=== PATIENT | female | born 1960 | race Caucasian/White ===

== ENCOUNTER 2020-09-16 02:47 | Outpatient (CLI) | payer BC, SELFPAY ==
--- NOTE | 2020-09-16 | DI.CT_ITS ---
EXAM: CT SINUS WO CLINICAL HISTORY: NASAL POLYPS,J33.9 TECHNIQUE: COMPARISON: No exams were available for comparison FINDINGS: CT examination of the paranasal sinuses was performed according to the usual protocol. The mastoid a ir cells are clear. Temporal bone structures appear intact. Orbital structures appear intact. Visualized paranasal sinuses are clear except for minimal mucoperiosteal thickening of right maxillar y antrum.. The ostiomeatal complexes of the maxillary antra appear intact bilaterally. There rounded radiodensities the midportion of the nasal cavity, question nasal polyposis please lexii elate clinically. IMPRESSION: No evidence of sinusitis. Probable nasal polyposis. RADIATION DOSE DELIVERED: 113.17mGy.cm Total DLP
== END 2020-09-16 03:07 ==
PROVIDERS: PCP Nurse Practitioner Adult Health; Visit Provider Otolaryngology
DX: J33.9 Nasal polyp, unspecified (principal)
CPT/HCPCS: 70486

== ENCOUNTER 2020-10-14 00:33 | Outpatient (CLI) | payer BC, SELFPAY ==
--- NOTE | 2020-10-14 08:15 | DI.MAMMO_ITS ---
EXAM: MAMMO SCREENING CLINICAL HISTORY: screening,Z12.39 TECHNIQUE: Mammograms were interpreted according to the usual protocol including computer analysis w [email or web address] CAD system, tomosynthesis and C-view imaging. COMPARISON: FINDINGS: The breasts are of moderate density with fairly symmetrical distribution of fibroglandular tissue. N o dominant mass or clumped microcalcification is identified in either breast. The current examinatio n is compared with previous examinations including February 2016 and there has been no gross interval ch madeleine in appearance in comparison with the prior studies. IMPRESSION: No specific evidence of malignancy at this time. Routine screening examinations are suggested at yea rly intervals in this age group according to the ACS ACR guidelines. BI-RADS Category 1 - Negative Breast Density - Category B - Scattered areas of fibroglandular density
== END 2020-10-14 00:53 ==
PROVIDERS: PCP Nurse Practitioner Adult Health; Visit Provider Nurse Practitioner Adult Health
DX: Z12.31 Encounter for screening mammogram for malignant neoplasm of breast (principal)
CPT/HCPCS: 77063; 77067

== ENCOUNTER 2020-10-14 02:29 | Outpatient (CLI) | payer BC, SELFPAY ==
[2020-10-14 18:41] LABS: ALT 26 U/L (14-59); AST 18 U/L (15-37); Albumin 4.6 g/dL (3.4-5.0); Alkaline Phosphatase 56 U/L (46-116); Anion Gap 6.1 mmol/L (3-11); BUN 8 mg/dL (7-18); Bilirubin, Total 0.5 mg/dL (0.2-1.0); CO2 30.9 mmol/L (21.0-32.0); CREATININE 1.03 mg/dL (0.55-1.02); Calcium 9.3 mg/dL (8.5-10.1); Calculated LDL 120 mg/dL (<100); Chloride 104 mmol/L (98-107); Cholesterol 190 mg/dL (<200); Estimated GFR 54.48 (mL/min/1.73m2); Glucose 94 mg/dL (74-106); HDL Cholesterol 56 mg/dL (40-60); Potassium 3.8 mmol/L (3.5-5.1); Sodium 141 mmol/L (136-145); Total Protein 7.5 g/dL (6.4-8.2); Triglyceride 71 mg/dL (<150)
[2020-10-16 09:32] LABS: Hepatitis C Ab w Rflx HCV PCR Negative (Negative)
[2020-10-16 09:34] LABS: HIV-1/2 Ag & Ab Screen Negative (Negative)
== END 2020-10-14 02:49 ==
PROVIDERS: PCP Nurse Practitioner Adult Health; Visit Provider Nurse Practitioner Adult Health
DX: Z13.220 Encounter for screening for lipoid disorders (principal); Z13.1 Encounter for screening for diabetes mellitus; Z11.4 Encounter for screening for human immunodeficiency virus [HIV]; Z11.59 Encounter for screening for other viral diseases; Z51.81 Encounter for therapeutic drug level monitoring
CPT/HCPCS: 36415; 80053; 80061; 86803; 87389

== ENCOUNTER 2020-10-26 02:20 | Outpatient (CLI) | payer BC, SELFPAY ==
[2020-10-28 09:40] LABS: COVID-19 RT-PCR Result NEGATIVE (Negative)
== END 2020-10-26 02:40 ==
PROVIDERS: PCP Nurse Practitioner Adult Health; Visit Provider Nurse Practitioner Adult Health
DX: Z20.828 Contact with and (suspected) exposure to other viral communicable diseases (principal)
CPT/HCPCS: U0003

== ENCOUNTER 2020-11-23 10:02 | Outpatient (CLI) | payer BC, SELFPAY ==
--- NOTE | 2020-11-23 08:30 | DI.RAD_ITS ---
EXAM: XR LUMBAR SPINE AP, LAT CLINICAL HISTORY: pain. TECHNIQUE: 2D digital imaging was performed. COMPARISON: No exams were available for comparison FINDINGS: There is transitional anatomy. There appears to be partial sacralization of the L5 segment and a greta imentary right 12th rib. There is no evidence compression fracture but there is degenerative anterolisthesis of L4 upon L5 by approximately 1 centimeter and related to degenerative facet joint changes. There also degenerative changes at L5-S1 level. Disc spaces maintain normal height with the exception of Schmorl's node inva gination into the inferior endplate of L5. Also subtle suggestion of a possible pars defect at L 5 l evel, as seen on the coned-down lateral view. IMPRESSION: There is degenerative anterolisthesis of L4 upon L5. This is related to degenerative facet joint christine nges. There are no pars defects at L4 level but possible pars defect at L5 level, somewhat peculiar as this appears sacralized. Twelfth rib is rudimentary. Recommend and AP view of the thoracic spine for accurate counting given the transitional anatomy here. DATA REPOSITORY: RADIATION DOSE DELIVERED:
--- NOTE | 2020-11-23 08:30 | DI.RAD_ITS ---
EXAM: XR HIP PELVIS ADULT BL CLINICAL HISTORY: pain. TECHNIQUE: 2D digital imaging was performed. COMPARISON: CR RIGHT HIP COMPLETE from 08/24/2012 FINDINGS: There is no evidence of pelvic or hip fracture. There is no hip joint space narrowing. Sacroiliac j oints appear unremarkable. Degenerative changes in the symphysis pubis are noted. Bone density is n ormal. No osseous lesions. IMPRESSION: DATA REPOSITORY: RADIATION DOSE DELIVERED:
--- NOTE | 2020-11-23 08:45 | DI.RAD_ITS ---
EXAM: XR KNEE LT 4V AP,LAT,SARA,PAT CLINICAL HISTORY: pain. TECHNIQUE: 2D digital imaging was performed. COMPARISON: No exams were available for comparison FINDINGS: Three views of the left knee reveal no evidence of fracture nor joint space narrowing. There is no p rominent joint effusion. No osteochondral defects evident. Small benign bone island measuring 3 mil limeters is noted in the lateral femoral condyle. IMPRESSION: No significant radiographic findings. DATA REPOSITORY: RADIATION DOSE DELIVERED:
== END 2020-11-23 10:22 ==
PROVIDERS: PCP Nurse Practitioner Adult Health; Referring Provider Nurse Practitioner Adult Health; Visit Provider Physician Assistant Surgical
DX: M25.562 Pain in left knee (principal); M25.551 Pain in right hip; M25.552 Pain in left hip; M43.16 Spondylolisthesis, lumbar region
CPT/HCPCS: 73521; 72100; 73564

== ENCOUNTER 2021-02-08 02:37 | Outpatient (CLI) | payer BC, SELFPAY ==
--- NOTE | 2021-02-08 | DI.MRI_ITS ---
EXAM: MR LUMBAR SPINE WO CLINICAL HISTORY: LOW BACK PAIN, LUMBAR RADICULOPATHY,M54.5,M54.16. TECHNIQUE: Multiplanar multisequence MRI of the Lumbar spine was performed. COMPARISON: CR XR LUMBAR SPINE AP, LAT from 11/23/2020 FINDINGS: Conus medullaris is at the lower L1 level. There is no evidence of conus mass nor subjacent clumping of intrathecal nerve roots to suggest arachnoiditis. The distal thecal sac appears unremarkable.The re is no evidence of Tarlov intrasacral cysts nor other significant findings within the sacral canal Bones:There are no fractures nor ominous osseous lesions in the lumbar vertebral bodies and visualize d sacrum. With respect to the individual levels... T12-L1: Unremarkable L1-2: Normal disc height and signal. No disc herniation nor central canal stenosis.No foraminal steno sis L2-3: Normal disc height. Mild annular bulging. Tiny tear in the lateral left annulus. Mild annular bulging into the floor of the left exiting neural foramen. No true foraminal stenosis. No central canal stenosis. No facet arthropathy. L3-4: Normal disc height. Tiny focus of increased signal in the posterior annulus consistent with sm all radial tear but no prominent disc herniation. Central canal dimensions lower normal.No foraminal stenosis.No facet arthropathy. L4-5: Preserved disc height and signal. However, there is anterolisthesis of L4 upon L5 by approxima tely 5 millimeters.. This appears to be related to degenerative changes in both facet joints at this level. There is a small superimposed subligamentous disc bulge. This slightly indents the anterior aspect of the thecal sac at this level. There is mild central spinal canal stenosis. Although the lateral recesses are carried forward, there does not appear to be significant foraminal stenosis as t here is no significant disc height loss. L5-S1: Preserved disc height and signal. Tiny hyperintense focus in the posterior annulus right of c enter consistent with radial tearing but there is no significant disc herniation at this level. Ther e is no central spinal canal stenosis. No significant foraminal stenosis. There are asymmetric dege nerative changes in the right facet joint at this level. Milder degenerative changes in the left fac et joint. Soft tissues: paraspinal soft tissues appear unremarkable. IMPRESSION: 1. There is degenerative anterolisthesis of L4 upon L5, approximately 5 millimeters slippage. The tr ue amount of slippage can be determined with flexion extension lateral plain film views. There is a small central subligamentous disc bulge at this level which indents the thecal sac and with mild cent ral canal stenosis at this level. There is no obvious foraminal stenosis at this level. There is no disc height loss. 2. Mild L5-S1 findings as above, not associated with central nor foraminal stenosis. Asymmetric dege nerative change in the right facet joint at the L5-S1 level. 3. Other findings as above. DATA REPOSITORY:
== END 2021-02-08 02:57 ==
PROVIDERS: PCP Nurse Practitioner Adult Health; Visit Provider Student in an Organized Health Care Education/Training Program
DX: M43.16 Spondylolisthesis, lumbar region (principal); M47.817 Spondylosis without myelopathy or radiculopathy, lumbosacral region
CPT/HCPCS: 72148

== ENCOUNTER → 2022-08-31 00:51 | Outpatient (CLI) | payer BC, SELFPAY ==
--- NOTE | 2022-08-31 07:30 | DI.MAMMO_ITS ---
Exam(s) MAMMO SCREENING EXAM: MAMMO SCREENING CLINICAL HISTORY: screening,Z12.39 TECHNIQUE: Bilateral full field digital CC and MLO mammographic images were obtained with 3D tomosyn thesis and utilizing computer aided detection (CAD). COMPARISON: Available for comparison. FINDINGS: Masses/Architectural Distortion: None seen. Microcalcifications: No suspicious pleomorphic-type are seen. Skin Thickening/Nipple Retraction: None. IMPRESSION: 1. No significant interval change with no specific features of malignancy noted. 2. Unless there is more urgent need, screening mammography is recommended, as per [place] [employer] guidelines. BI-RADS Category 1 - Negative Breast Density - Category B - Scattered areas of fibroglandular density Breast density category C or D implies that the patient has dense breast tissue. Dense breast tissue is very common and is not abnormal but dense breast tissue can make it harder to find cancer on a ma mmogram. Also, dense breast tissue may increase their breast cancer risk. This information about the result of the mammogram report was provided to the patient to raise their awareness. Use this report when you speak with the patient about their risks for breast cancer, which includes their family hist ory. At that time, you may recommend for more screening tests (Ultrasound or MRI) as they might be us eful based on their risk. A negative radiographic report should not delay biopsy if a dominant or clinically suspicious mass is present. Up to ten percent of cancers are not identified on mammography. A negative report may reinforce clinical impression. Adenosis and dense breasts may obscure an underlying neoplasm. False positive reports average 6 to 10%. Patient will receive a letter notifying them of these results.
== END ==
PROVIDERS: PCP Nurse Practitioner Adult Health; Visit Provider Nurse Practitioner Adult Health
DX: Z12.31 Encounter for screening mammogram for malignant neoplasm of breast (principal)
CPT/HCPCS: 77063; 77067

== ENCOUNTER 2023-08-14 15:50 | Outpatient (REF) | payer BC, SELFPAY ==
--- NOTE | 2023-08-14 13:45 | PAPFT_PTH ---
PATIENT: Shasta joseph LOC: [facility] U#:[id number] AGE/SX: 62/F ROOM: RE08/14/[address]: Renetta Rodriguez APRN : 1960 BED: DIS: 08/14/2023 SPEC #: [id number] RECD: 08/14/23 17:56 STATUS: WENDY REQ #: [id number] DAVID: 08/14/23 13:[address]: Renetta Rodriguez DEPT: [facility] Cytology RECD BY: Olivia Salvador Tissues: 1 - CX/ENDOCX FOR PAP SMEARS Procedures: PAP THIN PREP/UVM Screening HPV DNA PROBE Comments: [id number]
== END 2023-08-14 15:51 | disposition home or self-care (01) ==
LOC: LBO 15:50
PROVIDERS: PCP Nurse Practitioner Adult Health; Visit Provider Nurse Practitioner Adult Health
DX: Z12.4 Encounter for screening for malignant neoplasm of cervix (principal); Z11.51 Encounter for screening for human papillomavirus (HPV)
CPT/HCPCS: 88142; 87624

== ENCOUNTER 2023-08-24 04:57 | Outpatient (CLI) | payer BC, SELFPAY ==
[2023-08-24 09:13] LABS: Abs Immature Grans 0.01 10^3/uL (0.0-0.06); Absolute Basophil Count 0.04 10^3/uL (0.0-0.2); Absolute Eosinophil Count 0.21 10^3/uL (0.0-0.7); Absolute Monocyte Count 0.46 10^3/uL (0.1-0.8); Absolute Neutrophil Count 2.44 10^3/uL (1.2-6.7); Basophils % 0.8; Eosinophils % 4.2; HCT 39.5 % (36.0-46.0); HGB 13.8 g/dL (11.2-15.7); Immature Grans % 0.2; Lymphocytes % 37.5; MCH 30.5 pg (27.0-33.0); MCHC 34.9 % (32.0-36.0); MCV 87 fL (80-95); Monocytes % 9.1; Neutrophils % 48.2; Platelet Count 279 10^3/uL (130-400); RBC 4.52 10^6/uL (3.93-5.22); RDW 11.9 % (11.7-14.6); RDW-SD 38.5 fL; WBC 5.06 10^3/uL (4.4-10.8)
[2023-08-24 09:39] LABS: ALT 25 U/L (14-59); AST 21 U/L (15-37); Albumin 4.2 g/dL (3.4-5.0); Alkaline Phosphatase 63 U/L (46-116); Anion Gap 7.9 mmol/L (3-11); BUN 13 mg/dL (7-18); Bilirubin, Total 0.7 mg/dL (0.2-1.0); CO2 28.1 mmol/L (21.0-32.0); CREATININE 1.1 mg/dL (0.55-1.02); Calcium 9.3 mg/dL (8.5-10.1); Calculated LDL 123 mg/dL (<100); Chloride 102 mmol/L (98-107); Cholesterol 188 mg/dL (<200); Estimated GFR 56.11 (mL/min/1.73m2); Glucose 120 mg/dL (74-106); HDL Cholesterol 55 mg/dL (40-60); Potassium 4.1 mmol/L (3.5-5.1); Sodium 138 mmol/L (136-145); TSH (W/Ref FT4) 1.18 uIU/mL (0.36-3.74); Total Protein 7.7 g/dL (6.4-8.2); Triglyceride 51 mg/dL (<150)
[2023-08-24 09:47] LABS: Uric Acid 4.2 mg/dL (2.6-6.0)
== END 2023-08-24 04:58 | disposition home or self-care (01) ==
LOC: LBO 04:57
PROVIDERS: PCP Nurse Practitioner Adult Health; Referring Provider Nurse Practitioner Adult Health; Visit Provider Nurse Practitioner Adult Health
DX: Z13.1 Encounter for screening for diabetes mellitus (principal); Z13.220 Encounter for screening for lipoid disorders; R42 Dizziness and giddiness; M25.562 Pain in left knee
CPT/HCPCS: 36415; 80053; 80061; 84443; 84550; 85025

== ENCOUNTER 2023-09-07 01:37 | Outpatient (CLI) | payer BC, SELFPAY ==
--- NOTE | 2023-09-07 06:45 | DI.MAMMO_ITS ---
Exam(s) MAMMO SCREENING EXAM: MAMMO SCREENING CLINICAL HISTORY: screening,Z12.39 TECHNIQUE: Bilateral full field digital CC and MLO mammographic images were obtained with 3D tomosyn thesis and utilizing computer aided detection (CAD). COMPARISON: Available for comparison. FINDINGS: Masses/Architectural Distortion: None seen. Microcalcifications: No suspicious pleomorphic-type are seen. Skin Thickening/Nipple Retraction: None. IMPRESSION: 1. No significant interval change with no specific features of malignancy noted. 2. Unless there is more urgent need, screening mammography is recommended, as per [place] [employer] guidelines. BI-RADS Category 1 - Negative Breast Density - Category B - Scattered areas of fibroglandular density Breast density category C or D implies that the patient has dense breast tissue. Dense breast tissue is very common and is not abnormal but dense breast tissue can make it harder to find cancer on a ma mmogram. Also, dense breast tissue may increase their breast cancer risk. This information about the result of the mammogram report was provided to the patient to raise their awareness. Use this report when you speak with the patient about their risks for breast cancer, which includes their family hist ory. At that time, you may recommend for more screening tests (Ultrasound or MRI) as they might be us eful based on their risk. A negative radiographic report should not delay biopsy if a dominant or clinically suspicious mass is present. Up to ten percent of cancers are not identified on mammography. A negative report may reinforce clinical impression. Adenosis and dense breasts may obscure an underlying neoplasm. False positive reports average 6 to 10%. Patient will receive a letter notifying them of these results.
== END 2023-09-07 01:57 ==
PROVIDERS: PCP Nurse Practitioner Adult Health; Visit Provider Nurse Practitioner Adult Health
DX: Z12.31 Encounter for screening mammogram for malignant neoplasm of breast (principal)
CPT/HCPCS: 77063; 77067

== ENCOUNTER 2024-09-19 01:43 | Outpatient (CLI) | payer BC, SELFPAY ==
--- NOTE | 2024-09-19 07:30 | DI.MAMMO_ITS ---
Exam(s) MAMMO SCREENING EXAM: MAMMO SCREENING CLINICAL HISTORY: screening,z12.39 TECHNIQUE: Mammograms were interpreted according to the usual protocol including computer analysis w [employer] CAD system, tomosynthesis and C-view imaging. COMPARISON: 2014 through 2022 FINDINGS: The breasts are composed of scattered fibroglandular densities, Breast Density category B. No suspicious masses or suspicious microcalcifications are seen. No skin thickening or abnormal axillary lymph nodes are seen. There has been no significant change from prior exams. IMPRESSION: BI-RADS Category 1, Negative mammogram Yearly screening mammography is recommended. Breast Density - Category B, scattered fibroglandular densities. A negative radiographic report should not delay biopsy if a dominant or clinically suspicious mass is present. Up to ten percent of cancers are not identified on mammography. A negative report may reinforce clinical impression. Adenosis and dense breasts may obscure an underlying neoplasm. False positive reports average 6 to 10%. Patient will receive a letter notifying them of these results.
--- NOTE | 2024-09-19 07:30 | DI.DEXA_ITS ---
Exam(s) XR DEXA BONE DENSITY W/WO ASAEL EXAM: XR DEXA BONE DENSITY W/WO ASAEL CLINICAL HISTORY: F/U 2018,OSTEOPENIA,SCREENING FOR OSTEOPOROSIS IN POSTMENOPAUSAL TECHNIQUE: [employer] C densitometer analysis of left hip, lumbar spine and right forearm. La teral survey image of the thoracic and lumbar spine. COMPARISON: MR MR LUMBAR SPINE WO from 02/08/2021 FINDINGS: Lateral view of the thoracic and lumbar spine shows no evidence of compression fractures. Bone mineral density measurements of the lumbar spine correspond to a total T-score of -1.5, in the osteopenic range. Bone mineral density measurements of the left hip correspond to a total T-score of 0.1 . The femoral neck T-score is -1.3, in the osteopenic range. Theright forearm bone mineral density measurements correspond to a T-score of the distal 3rd of -1.8 , in the osteopenic range. IMPRESSION: Osteopenia of the spine, hip and forearm.
--- NOTE | 2024-09-19 07:30 | DI.US_ITS ---
Exam(s) US PELVIS TRANSVAGINAL EXAM: US PELVIS TRANSVAGINAL CLINICAL HISTORY: ? ovarian mass,LLQ pain,r10.32 TECHNIQUE: Transabdominal and transvaginal imaging was performed using standard protocol. CR XR HIP PELVIS ADULT BL from 11/23/2020 FINDINGS: UTERUS: Retroflexed. 5.2 x 2.6 x 4.2 cm Endometrium: 0.6 mm Myometrium: Hypoechoic area with calcification measuring 8 millimeters, likely fibroid. Uterine bee rial calcifications. Cervix: Unremarkable. OVARIES: Right: Cyst or mass: None. Left: Cyst or mass: None. DOPPLER: Color: Symmetric and uniform flow to both ovaries. No hyperemia. CUL-DE-SAC: Free fluid: None. IMPRESSION: 1. Small fibroid near fundus. Endometrial stripe within normal limits. 2. Unremarkable bilateral ovaries. DATA REPOSITORY:
== END 2024-09-19 02:03 ==
PROVIDERS: PCP Nurse Practitioner Adult Health; Visit Provider Nurse Practitioner Adult Health
DX: R10.32 Left lower quadrant pain (principal); Z12.31 Encounter for screening mammogram for malignant neoplasm of breast; Z13.820 Encounter for screening for osteoporosis; Z78.0 Asymptomatic menopausal state
CPT/HCPCS: 77063; 77067; 77080; 76830; 76856

== ENCOUNTER 2025-04-04 01:59 | Outpatient (CLI) | payer BC, SELFPAY ==
[2025-04-04 08:47] LABS: Anion Gap 4.4 mmol/L (3-11); BUN 10 mg/dL (7-18); CO2 28.6 mmol/L (21.0-32.0); CREATININE 1.1 mg/dL (0.55-1.02); Calcium 8.8 mg/dL (8.5-10.1); Calculated LDL 99 mg/dL (<100); Chloride 104 mmol/L (98-107); Cholesterol 159 mg/dL (<200); Estimated GFR 55.42 (mL/min/1.73m2); Glucose 105 mg/dL (74-106); HDL Cholesterol 44 mg/dL (>or=50); Potassium 3.8 mmol/L (3.5-5.1); Sodium 137 mmol/L (136-145); Triglyceride 82 mg/dL (<150)
== END 2025-04-04 02:00 | disposition home or self-care (01) ==
PROVIDERS: PCP Nurse Practitioner Adult Health; Referring Provider Nurse Practitioner Adult Health; Visit Provider Nurse Practitioner Adult Health
DX: Z13.1 Encounter for screening for diabetes mellitus (principal); Z13.220 Encounter for screening for lipoid disorders
CPT/HCPCS: 36415; 80048; 80061

== ENCOUNTER 2025-07-09 10:10 | Outpatient (CLI) | payer BC, SELFPAY ==
[2025-07-09 10:23] LABS: Abs Immature Grans 0.01 10^3/uL (0.0-0.06); HCT 39.9 % (36.0-46.0); HGB 13.5 g/dL (11.2-15.7); Immature Grans % 0.1 %; MCH 29.3 pg (27.0-33.0); MCHC 33.8 % (32.0-36.0); MCV 87 fL (80-95); MPV 9.4 fL (8.0-11.0); Platelet Count 283 10^3/uL (130-400); RBC 4.60 10^6/uL (3.93-5.22); RDW 12.1 % (11.7-14.6); RDW-SD 38.3 fL; WBC 7.07 10^3/uL (4.4-10.8)
[2025-07-09 11:36] LABS: TSH (W/Ref FT4) 1.19 uIU/mL (0.36-3.74)
== END 2025-07-09 10:11 | disposition home or self-care (01) ==
LOC: LBO 10:11
PROVIDERS: PCP Nurse Practitioner Adult Health; Visit Provider Nurse Practitioner Adult Health
DX: R42 Dizziness and giddiness (principal)
CPT/HCPCS: 36415; 84443; 85025

== ENCOUNTER 2025-07-22 16:05 | Outpatient (CLI) | payer BC, SELFPAY ==
--- NOTE | 2025-07-22 07:30 | DI.US_ITS ---
APPROVED REPORT EXAM: Comprehensive 2D, Doppler, and color-flow Echocardiogram Patient Location: Out-Patient Ems Coordinator: Colby Michel RDCS (AE) Indications: Presyncope, assess valves Other Information Study Quality: Adequate Conclusion Normal left ventricular wall thickness and chamber size. Ejection fraction is 60 to 65%. Wall motion is normal Normal right ventricular size and function Both atria are normal in size There is no structural or hemodynamically significant valvular disease Normal estimated right ventricular systolic pressure 21 mmHg Mildly dilated ascending aorta 3.66 cm Wall motion Left Ventricle The left ventricle is normal size. Left ventricular systolic function is normal. The left ventricular ejection fraction is within the normal range. There is normal left ventricular wall thickness. There is normal LV segmental wall motion. There is no ventricular septal defect visualized. LVEF is 60-65%. Right Ventricle The right ventricle is normal size. The right ventricular systolic function is normal. Atria The left atrium size is normal. The right atrium size is normal. Aortic Valve The aortic valve is normal in structure. Aortic valve is trileaflet. There is no aortic valvular stenosis. No aortic regurgitation is present. Mitral Valve The mitral valve is normal in structure. No evidence of mitral valve stenosis. There is no mitral valve regurgitation noted. Tricuspid Valve The tricuspid valve is normal in structure. There is no tricuspid valve stenosis. Trace tricuspid regurgitation. The RVSP is 20.8 mmHg. Pulmonic Valve The pulmonary valve is normal in structure. There is no pulmonic valvular stenosis. There is no pulmonic valvular regurgitation. Great Vessels The aortic root is normal in size. The ascending aorta is mildly dilated. Aortic arch is normal in caliber. IVC is normal in size and collapses >50% with inspiration. Pericardium There is no pericardial effusion. 2D Dimensions IVSD d PLAX 0.61 cm F: 0.6-1.0 Ao Root d 2.49 cm F: 2.7 - 3.3 LVPW d PLAX 0.65 cm F: 0.6 - 1.0 Ao Asc Diam d 3.66 cm F: 2.3 - 3.1 LVID d PLAX 5.56 cm F: 3.8 - 5.2 LVDs 3.78 cm F: 2.2 - 3.5 LV EF Teichholz 59.6 % FS 32.06 % LV EDV (Teich) 151.1 mL LV ESV (Teich) 61.0 mL Stroke Vol Index (Teich) 50.30 M-Mode TAPSE 1.90 cm (M/F) >1.7 Auto EF LV EDV A4C 96.5 mL LV EDV A2C 88.2 mL LV EDV BP 93.3 mL LV ESV A4C 39.0 mL LV ESV A2C 33.7 mL LV ESV BP 36.6 mL LVEF(%) A4C 59.5 % LVEF(%) A2C 61.8 % LVEF(%) BP 60.7 % LV SV A4C 57.4 ml LV SV A2C 54.5 ml LV SV BP 56.7 ml LV CO A4C 3.5 L/min LV CO A2C 3.2 L/min LV CO BP 3.4 L/min HR A4C 60.30 BPM HR A2C 59.41 BPM LV EDV Index (BP) LA Volume LA Length A4C 4.7 cm LA Length A2C 4.6 cm LA Area A4C s 9.17 cm2 LA Area A2C s 8.56 cm2 LA Vol A4C A-L 15.13 mL LA Vol A2C A-L 13.54 mL LA Vol Biplane A-L 14.5 mL LA Vol/BSA A4C A-L LA Vol/BSA A2C A-L LA Vol/BSA BP A-L 8.1 mL/m2 LA Vol A4C MOD 14.5 mL LA Vol A2C MOD 12.8 mL LA Vol BP MOD 13.8 mL RA Volume RA Area A4C 8.2 cm2 RA ESV A4C (A-L) 15.4mL RA Vol/BSA A4C A-L RA Length A4C 3.7 cm RA ESV A4C (MOD) 15.5mL LV Diastology MV E' medial 0.116 (>0.07 m/s) MV E Vmax 0.86 (0.4-1.3 m/s) MV E/E' MED 7.40 (<14) MV A Vmax 0.75 (0.4-1.3 m/s) MV E' lateral 0.108 (>0.1 m/s) E/A Ratio 1.1 MV E/E' LAT 7.92 (<14) MV E' Average 0.112 m/s MV E/E'(average) 7.65 Aortic Valve AoV Vmax 1.44 m/s LVOT Vmax 1.29 m/s AoV Peak Grad 8.2 mmHg LVOT Peak Grad 6.6 mmHg AoV Area (Vmax) 2.73 cm2 LVOT VTI 0.281 m AoV VTI 0.328 m LVOT Mean Grad 3.6 mmHg AoV Mean Gabriel. 0.98 m/s LVOT SV 85.79 mL AoV Mean Grad 4.4 mmHg LVOT Diam s 1.95 cm AoV Area (VTI) 2.61 cm2 AV Regurg Peak Gr. 8.25 mmHg Velocity Ratio 0.90 Mitral Valve MV DT 209 (160-240 msec) Pulmonary Valve PV Vmax 1.03 (0.5-1.5 m/s) RVOT Vmax 0.63 m/s PV Peak Grad 4.2 mmHg RVOT Peak Gr. 1.6 mmHg PV Mean Gabriel 0.69 m/s RVOT VTI 0.156 m PV Mean Grad 2.2 mmHg RVOT Mean Gr. 0.8 mmHg Tricuspid Valve RA Pressure 3.00 mmHg TR Vmax 2.11 m/s TR Peak Grad 17.8 mmHg RVSP (TR) 20.8 mmHg
== END 2025-07-22 16:25 ==
LOC: DI 16:05
PROVIDERS: PCP Nurse Practitioner Adult Health; Visit Provider Nurse Practitioner Adult Health
DX: R55 Syncope and collapse (principal)
CPT/HCPCS: 93306

== ENCOUNTER → 2025-09-29 02:26 | Outpatient (CLI) | payer BC, SELFPAY ==
--- NOTE | 2025-09-29 06:45 | DI.MAMMO_ITS ---
Exam(s) MAMMO SCREENING EXAM: MAMMO SCREENING CLINICAL HISTORY: screening,Z12.39. TECHNIQUE: Bilateral full field digital CC and MLO mammographic images were obtained with 3D tomosynthesis and utilizing computer aided detection (CAD). COMPARISON: Prior mammograms were reviewed. FINDINGS: There has been no significant change in the appearance and distribution of the fibroglandular tissue. There are no new spiculated masses nor malignant appearing microcalcification groups. There is no significant architectural distortion nor skin thickening-retraction. IMPRESSION: No radiographic evidence of malignancy. BI-RADS Category 1 - Negative Breast Density - Category B - There are scattered areas of fibroglandular density. Breast density Category C or D implies that the patient has dense breast tissue. Dense breast tissue can make it harder to find cancer on a mammogram. Dense breast tissue is also associated with an increased risk of breast cancer. This information about the result of the mammogram report was provided to the patient to raise their awareness. Use this report when you speak with the patient about their risks for breast cancer, which includes their family history. At that time, you may recommend additional screening tests (Ultrasound or MRI) as these tests may add significant information. A negative radiographic report should not delay biopsy if a dominant or clinically suspicious mass is present. Up to ten percent of cancers are not identified on mammography. A negative report may reinforce clinical impression. Adenosis and dense breasts may obscure an underlying neoplasm. False positive reports average 6 to 10%. Patient will receive a letter notifying them of these results.
== END ==
LOC: DI 02:26
PROVIDERS: PCP Nurse Practitioner Adult Health; Visit Provider Nurse Practitioner Adult Health
DX: Z12.31 Encounter for screening mammogram for malignant neoplasm of breast (principal)
CPT/HCPCS: 77063; 77067

== ENCOUNTER 2025-09-29 13:39 | Outpatient (REF) | payer BC, SELFPAY ==
--- NOTE | 2025-09-29 13:40 | SKI_PTH ---
PATIENT: Shasta joseph LOC: [facility] U#:[id number] AGE/SX: 64/F ROOM: RE09/29/[address]: Delisa Elkins : 1960 BED: DIS: 09/29/2025 SPEC #: [id number] RECD: 09/29/25 18:16 STATUS: WENDY MALONEY #: [id number] DAVID: 09/29/25 13:[address]: Delisa Elkins DEPT: Surgical Specimen RECD BY: Olivia Salvador ENTERED: 09/29/25 18:16 SP TYPE: OWEN GONZALES DR: Renetta Rodriguez APRN Tissues: 1 - SKIN BIOPSY(SHAVE/PUNCH) Procedures: SKIN LEVEL 4 Comments: [id number]
== END 2025-09-29 13:40 | disposition home or self-care (01) ==
LOC: LBN 13:39
PROVIDERS: PCP Nurse Practitioner Adult Health; Visit Provider Student in an Organized Health Care Education/Training Program
DX: D22.71 Melanocytic nevi of right lower limb, including hip (principal)
CPT/HCPCS: 88305